=== PATIENT | female | born 1990 | race Caucasian/White ===

== ENCOUNTER 2016-05-24 12:54 | Observation (INO) ==
[2016-05-24 13:42] LABS: Bilirubin,Urine Negative (Negative); Blood,Urine Negative (Negative); Clarity,Urine Cloudy (Clear); Color,Urine Yellow (Yellow); Glucose,Urine (UA) Normal (Normal); Ketones,Urine Negative (Negative); Leukocyte Esterase,Urine Moderate (Negative); Nitrite,Urine Negative (Negative); Protein,Urine Negative (Neg-Trace); Urobilinogen,Urine Normal (Normal)
[2016-05-24 13:44] LABS: Bacteria,Urine Moderate per hpf (None-Few); Hyaline Casts,Urine None Seen per lpf (None-Few); RBC,Urine 0-3 per hpf (0-3)
[2016-05-24 13:51] LABS: Calcium Oxalate Crystals,Urine Present; Squamous Epithelial Cell,Urine Moderate per lpf (None-Few)
[2016-05-24 14:48] LABS: Candida DNA Not Detected (Not Detect); Gardnerella DNA Not Detected (Not Detect); Trichomonas DNA Not Detected (Not Detect)
--- NOTE | 2016-05-24 15:14 | OB/GYN Progress Note ---
Date of Encounter: 05/24/16 Time of Encounter: 15:12 - Assessment and Plan (1) contractions Current Visit: Yes Status: Acute 25 y/o with a history of delivery presented at 29+ weeks with complaints of discharge and discomfort. No LOF, VB or ctxs, UA showed a contaminated sample, sent for cultures, vaginosis panel returned negative, patient discharged to follow up outpt. Objective - Vital Signs Vital Signs: Intake and Output 05/23/16 05/24/16 05/24/16 23:59 07:59 15:59 Other: Weight 96.7 kg Patient Weight 05/24/16 23:59 Weight 96.7 kg - Labs Labs: Abnormal lab results Urine Clarity Cloudy (Clear) A 05/24/16 13:15 Ur Leukocyte Esterase Moderate (Negative) H 05/24/16 13:15 Urine Microscopic WBC 5-15 per hpf (0-3) H 05/24/16 13:15 Ur Squamous Epith Cells Moderate per lpf (None-Few) H 05/24/16 13:15 Urine Bacteria Moderate per hpf (None-Few) H 05/24/16 13:15 Ur Culture Indicated? YES (NO) A 05/24/16 13:15
== END 2016-05-24 15:05 | disposition home or self-care (01) ==
LOC: 1NENULAB
PROVIDERS: ADMIT Student in an Organized Health Care Education/Training Program; ATTEND Student in an Organized Health Care Education/Training Program

== ENCOUNTER 2016-07-03 11:16 | Observation (INO) ==
[2016-07-03] MEDS ORDERED: Ringers Solution, Lactated 1,000 ML IVC ONE ×2 (11:54→14:16)
[2016-07-03] MEDS ORDERED: Ringers Solution, Lactated 1,000 ML ONE (12:14)
[2016-07-03 13:13] LABS: Bilirubin,Urine Negative (Negative); Blood,Urine Negative (Negative); Clarity,Urine Cloudy (Clear); Color,Urine Yellow (Yellow); Glucose,Urine (UA) Normal (Normal); Ketones,Urine 15 mg/dL (Negative); Leukocyte Esterase,Urine Small (Negative); Nitrite,Urine Negative (Negative); PH,Urine 7.5 pH Units (5.0-8.0); Protein,Urine Negative (Neg-Trace); Specific Gravity,Urine 1.016 (1.010-1.025); Urobilinogen,Urine Normal (Normal)
[2016-07-03 13:15] LABS: Bacteria,Urine None Seen per hpf (None-Few); Hyaline Casts,Urine None Seen per lpf (None-Few); RBC,Urine 0-3 per hpf (0-3); Squamous Epithelial Cell,Urine Many per lpf (None-Few)
[2016-07-03 13:27] LABS: Mucus,Urine Few (Few)
[2016-07-03 13:28] LABS: Amorphous Sediment,Urine Few (Few)
[2016-07-03] MEDS ORDERED: Ondansetron 4 MG/2 ML VIAL IVP STA (13:29)
[2016-07-03] MEDS ORDERED: Famotidine 20 MG/2 ML VIAL IVP ONE (14:17)
--- NOTE | 2016-07-03 15:04 | Discharge Summary ---
Date of Encounter: 07/03/16 Time of Encounter: 15:57 - Discharge Diagnosis (1) contractions Priority: Primary Status: Acute Comments: Mrs. Parish, a 25yo female, presents from home with chief complaint nausea and vomiting. She has a history of pre-term deliveries. Currently on weekly progesterone injections. Her home health nurse, when giving her the progesterone injection, recommended the patient present for evaluation. Nausea and vomiting onset last night. Multiple occurrences; non-bloody, non-bilious. No fever, chills, abdominal pain, urinary burning/frequency/hesitancy/urgency, no diarrhea or constipation. On presentation, patient had lower abdominal pressure with intermittent sharp pelvic pains with sitting and walking. Her pressure and pain eased during her stay. Her nausea improved with 2L LR and zofran 4mg IV. Initial vaginal exam by nurse noted 1cm/50%/-3 station (11:30am ) which was unchanged 3 hours later (13:30) and unchanged an additional 1.5 hrs later (15:50). Throughout this time, her contractions changed from initially mild, sporadic, disorganized to mild, somewhat consistent 3 minute intervals to mild, sporadic, disorganized. NST was reactive and in 130-140 range. Patient does not have a history of short labors. She [place] appx [address] [place] from the hospital and desires to go home. Patient follows with Dr. Hernandez. Next appointment this coming Wednesday. She is agreeable to discharge home with return precautions, follow-up recommendation, and zofran 4mg PRN nausea. - Discharge Medications Prescriptions: Ondansetron ODT [Zofran ODT] 4 mg SL Q6HR PRN #12 tab.rapdis PRN Reason: Nausea Home Medications: Caplet tab PO DAILY 05/24/16 [History] Progesterone 50 mg IM 05/24/16 [History] Ondansetron ODT [Zofran ODT] 4 mg SL Q6HR PRN #12 tab.rapdis 07/03/16 [Rx] Allergies/Adverse Reactions: Allergies Amoxicillin Adverse Reaction (Verified 05/24/16 13:03) Hives Penicillins Adverse Reaction (Verified 05/24/16 13:03) Hives Data Procedures and tests throughout hospitalization: Laboratory Tests 07/03/16 13:05 Urine Color Yellow Urine Clarity Cloudy A Urine pH 7.5 Ur Specific [place] 1.016 Urine Protein Negative Urine Glucose (UA) Normal Urine Ketones 15 H Urine Blood Negative Urine Nitrite Negative Urine Bilirubin Negative Urine Urobilinogen Normal Ur Leukocyte Esterase Small H Urine Microscopic RBC 0-3 Urine Microscopic WBC 3-5 H Ur Squamous Epith Cells Many H Amorphous Sediment Few Urine Bacteria None Seen Hyaline Casts None Seen Urine Mucus Few Urine Yeast Test Not Performed Ur Culture Indicated? YES A Labs on day of discharge: Labs from last 24 hours 07/03/16 13:05 Urine Color Yellow Urine Clarity Cloudy A Urine pH 7.5 Ur Specific [place] 1.016 Urine Protein Negative Urine Glucose (UA) Normal Urine Ketones 15 H Urine Blood Negative Urine Nitrite Negative Urine Bilirubin Negative Urine Urobilinogen Normal Ur Leukocyte Esterase Small H Urine Microscopic RBC 0-3 Urine Microscopic WBC 3-5 H Ur Squamous Epith Cells Many H Amorphous Sediment Few Urine Bacteria None Seen Hyaline Casts None Seen Urine Mucus Few Urine Yeast Test Not Performed Ur Culture Indicated? YES A Date of admission: 07/03/16 11:16 Primary care physician: Dr. Hernandez Consults: none Discharging clinician: Josue Issa Anticipated date of discharge: 07/03/16 - Patient Status Disposition: Home, Self-Care Condition: Good Functional capacity at discharge: independent ambulation Overall status at discharge: patient is back to baseline - Discharge Instructions Instructions: Labor (DC) Additional Instructions: LABOR AND DELIVERY DISCHARGE INSTRUCTIONS Signs and Symptoms to be Reported to your Doctor Immediately: * Sudden gush, continuous or intermittent lead of fluid from vagina (note the time of gush and color of fluid) * Onset of bright red vaginal bleeding with or without pain (if you had a vaginal exam during this visit you may notice some dark red spotting. This is normal.) * Lower abdominal cramping or backache that is premenstrual-like feeling. * More than 6 contractions in one hour. * Burning during urination, having to urinate more frequently or pain in your mid-back. * A change in the baby's activity. This could be an increase or decrease in activity. * Severe headache which does not go away with tylenol. * Sudden swelling in the face, hands, arms and/or legs. * Upper abdominal pain - sometimes associated with heartburn or nausea and is not relieved by Maalox, Mylanta or Tums. * Dizziness or blurred vision or visual disturbances (seeing stars/lights). * Kick Counts One hour after a meal, lay down on one side in a quiet place. Count the number of diana the baby moves during an hour. If less than 6 movements, notify your physician. Diet: *Force fluids - 8-10 tall glasses of fluid per day. May include popsicles and jello. *Limit caffeine - this includes chocolate, coffee, tea, any soft drink containing such as all eda, Will Yellow and Mountain Dew - Diet and Activity Activity: resume usual activities as tolerated Diet: advance to your usual diet Hospital Course ESTIMATOR PRINTING Time Attestation: Total time spent providing and/or coordinating discharge services: Exam - Constitutional General appearance IM: A&O X 3 - Respiratory Respiratory exam: Present: CTAB - Cardiovascular Cardiovascular exam IM: Present: RRR, +S1, +S2 - GI/Abdominal GI/Abdominal exam IM: normal bowel sounds, soft - Extremities Exam Extremities exam IM: Present: normal capillary refill - Neurological Exam Neurological exam: oriented X3 - VTE Reasons for not Prescribing Prophylaxis: Treatment not Indicated - Low risk for VTE
== END 2016-07-03 15:50 | disposition home or self-care (01) ==
LOC: 1NENULAB

== ENCOUNTER → 2016-07-10 17:35 | Observation (INO) ==
--- NOTE | 2016-07-10 16:56 | OB/GYN History & Physical ---
Date of Encounter: 07/10/16 Time of Encounter: 17:15 Assessment and Plan (1) 36 weeks gestation of Current visit: Yes Status: Acute FHR/tocometer/nitrizine test; possible speculum exam for ferning (2) History of pre-eclampsia Current visit: Yes Status: Acute BP normal. No c/o headache or vision changes today. (3) Vaginal discharge during in third trimester Current visit: Yes Status: Acute Nitrazine and fern negative. Vaginosis panel sent. Pt desires discharge to home. Precautions given. (4) Decreased movement Current visit: Yes Status: Acute NST reactive. Kick counts discussed. History of Present Illness Chief complaint: possible SROM; pelvic pressure HPI: Ms. Parish is a 25 year old female 36 3/7 weeks, one previous labor and a HX of pre-eclampsia in the past states that yesterday she had a headache and a gush of fluid around 1700 yesterday that may have been blood tinged and small amount of mucus discharge since then. Patient states she is experiencing increased vaginal and low back pressure. She follows with Dr. Hernandez. vaginal discharge ; 1 , 1 term CECELIA: 08/05/16 Fluid description: clear-blood tinged (-) GBS Male: Ra Breast feeding ABC peds circumcision: yes Past Med Surg Social Fam HX - Past Medical History Medical history: no medical history Psychiatric history: depression - Past Surgical History Surgical History: other - Social History Smoking Status: Never smoker Smokeless Tobacco Status: No Alcohol use: none Drug use: none - Family History Sister Adopted: No Living Status: Still Living Hx Family Cardiac Disorders: No Hx Family Respiratory Disorders: No Hx Family Cancer: No Hx Family GI Disorders: No Hx Family Endocrine Disorder: No Hx Family Neuromuscular Disorders: No Hx Family Neurologic Disorders: No Hx Family HEENT Disorders: No Hx Family Autoimmune Disorders: No Obstetrical History - Pregnancies : 3 Para: 3 Term: 1 : 1 Livin Medications and Allergies Caplet tab PO DAILY 05/24/16 [History] Progesterone 50 mg IM 05/24/16 [History] Ondansetron ODT [Zofran ODT] 4 mg SL Q6HR PRN #12 tab.rapdis 07/03/16 [Rx] Allergies Amoxicillin Adverse Reaction (Verified 05/24/16 13:03) Hives Penicillins Adverse Reaction (Verified 05/24/16 13:03) Hives Review of System OB All systems PM: reviewed and no additional remarkable complaints except as stated - Gastrointestinal Gastrointestinal: as per HPI, abdominal pain - Genitourinary Genitourinary: as per HPI, pelvic pain, vaginal discharge Exam - Constitutional Constitutional: well developed, well nourished, no acute distress, average body habitus - HEENT HEENT: Normocephaly, Mucus Membranes Moist - Neck Neck exam: full ROM, normal inspection - Lungs Respiratory exam: CTAB - Cardiovascular Cardiovascular exam: RRR - Breasts Breast: bilateral: normal - Abdomen Abdomen: Present: bowel sounds normal - Extremities Extremities exam: full ROM, normal capillary refill, normal inspection - Vulva Vulva: bilateral: normal - Vagina Vagina: Present: normal moisture - Cervix Dilation: 2 Effacement: 50 Station: -2 - Uterus Uterus exam: Present: normal size, normal contour - Anus/Rectum Anus/Rectum: Present: normal perianal skin - Comments Comments: SSE with thick discharge. Negative pool, negative fern, negative nitrazine. Vaginosis panel collected. Results All other labs normal.
[2016-07-10 18:17] LABS: Candida DNA Not Detected (Not Detect); Gardnerella DNA Not Detected (Not Detect); Trichomonas DNA Not Detected (Not Detect)
== END | disposition home or self-care (01) ==
LOC: 1NENULAB
PROVIDERS: ADMIT Obstetrics & Gynecology; ATTEND Obstetrics & Gynecology

== ENCOUNTER 2016-07-15 04:38 | Inpatient (IN) ==
--- NOTE | 2016-07-15 04:30 | OB/GYN History & Physical ---
Date of Encounter: 07/15/16 Time of Encounter: 04:28 Assessment and Plan (1) 37 weeks gestation of Current visit: Yes Status: Acute Patient is a at 37 weeks who was awakened this morning around 1 AM due to large amount of fluid that was blood-tinged as well as onset of contractions that has now become at consistent intervals of 3-5 minutes apart. Positive nitrazine test. On physical exam, cervical dilation 4 cm, 60% effaced , station -3. Patient states associated pelvic pressure and lower abdominal pain with contractions at 7 out of 10. Similar to previous labor. heart rate/tocometer/nitrazine test (+) Labor plan: Induction: Patient approves augmentation of labor to include oxytocin if needed. Pain control: Epidural and Nubain. Nausea: Zofran Will continue to monitor patient and fetus. Will assess cervix at 2 hour intervals for changes and labor progression. Expectant management for labor. (2) NST (non-stress test) reactive Current visit: Yes Status: Acute FHT: 140s; moderate variability; 15 x 15 accels: No decelerations History of Present Illness Chief complaint: Labor HPI: Ms. Parish is a 25 year old female G 3 P P1102 at 37 weeks 0 /7 days with complications during include labor for which she recently finished her last dose of progesterone 4 days ago with a past medical history of obesity, depression, anxiety, endometriosis who presents today for labor evaluation. Patient describes that around 1:00 this morning she awoke with a gush of fluid that was blood tinged that soaked her in bed. Patient was unsure whether this was her water breaking or urine leakage so she waited and evaluated her contractions. Contractions began at time of water breakage described as intermittent occurring approximately 6-8 minutes apart and has since become more consistent intervals now 3-5 minutes apart so she decided to come and be evaluated for active labor. Associated symptoms include low pelvic pain, anterior cramping with contractions rated as 7 out of 10 pain, nausea. Similar to previous labor symptoms. Patient admits: Last sexual intercourse was last night, nausea, blood tinged fluid from her vagina Patient denies: vaginal discharge, dysuria, pyuria, hematuria, flank pain, fever , chills, abdominal trauma or falls movements: Normal movements Labor Plan: Induction: Patient improves augmentation of labor to include oxytocin if needed. Pain control: Epidural and Nubain. FHT: 140s; moderate variability; 15 x 15 accels: No decelerations TOCO: Contractions every 3-5 minutes Cervix: dilation 4 cm, 60 % effaced, station -3, consistency soft, position mid position. care: Regular intervals OB Doctor: Radha Hernandez OB history: Total pregnancies 3. Total living children 2. PANEL BEATER history: Sexually active currently Last Pap smear Abnormal Pap smear: patient denies history of Sexually transmitted infections none per patient Last menstrual period 09/26/2015 Age of menarche onset: 11 Labs: Blood Type: O+ GBS: Negative on 07/08/16 Rubella IgG antibody: Immune HbSAG: Negative T.pallidum antibody: Negative Varicella IgG antibody: Immune HIV 1 and 2 antibody and P 24 antigen: Negative Other: Cystic fibrosis 165: Negative Baby: Boy Name: Ra Mom plans to breast-feed Circumcision:[Yes] Rn Resource Nurse: Dr. Osman Past Med Surg Social Fam HX - Past Medical History Medical history: no medical history Psychiatric history: depression - Past Surgical History Surgical History: other - Social History Smoking Status: Never smoker Smokeless Tobacco Status: No Alcohol use: none Drug use: none - Family History Sister Adopted: No Age: 26 Living Status: Still Living Hx Family Cardiac Disorders: No Hx Family Respiratory Disorders: No Hx Family Cancer: No Hx Family GI Disorders: No Hx Family Genitourinary Disorders: No Hx Family Endocrine Disorder: No Hx Family Musculoskeletal Disorders: No Hx Family Neuromuscular Disorders: No Hx Family Neurologic Disorders: No Hx Family HEENT Disorders: No Hx Family Autoimmune Disorders: No Hx Family Reproductive Disorders: No Hx Family Psychosocial Disorders: No Hx Family Medical Disorders: Yes (factor 5) Obstetrical History - Pregnancies : 3 Para: 2 Term: 1 : 1 Ab's: 0 Livin - History/Complications History/Complications: # 1: 10/27/2009, vaginal delivery,36 weeks PPROM, , Weight:5lb 4oz, female "Alexandro" (Yelena). # 2: 08/20/13,Male,Slim,7lbs 4oz,Vaginal,38wks- Medications and Allergies Caplet tab PO DAILY 05/24/16 [History] Allergies Amoxicillin Adverse Reaction (Verified 05/24/16 13:03) Hives Penicillins Adverse Reaction (Verified 07/15/16 03:57) Hives thinks throat swelled as well Review of System OB - Constitutional Constitutional ROS IM: no chills, no fever(s), no frequent falls, no headache(s) - Nose, mouth, and throat Nose, mouth and throat: no dizziness, no headache(s), no nasal discharge, no sinus pain, no sinus pressure, no sore throat, no vertigo - Cardiovascular Cardiovascular: no chest pain, no dyspnea, no palpitations - Respiratory Respiratory: no cough, no dyspnea, no hemoptysis - Gastrointestinal Gastrointestinal: heartburn, nausea, vomiting - Genitourinary Genitourinary: pelvic pain, no urinary frequency, no urinary urgency, no vaginal discharge, no vaginal odor - Integumentary Integumentary: no rash, no sores, no unusual bruising, no wounds - Neurological Nerological: no headache(s), no lack of coordination, no loss of vision, no numbness, no syncope, no tingling - Endocrine Endocrine: no palpitations - Hematologic/Lymphatic Hematologic/Lymphatic: no easy bleeding, no easy bruising, no lymphadenopathy - Allergic/Immunologic Allergic/Immunologic: no tongue swelling, no throat swelling Exam - Vital Signs Vital signs: Initial Vital Signs Pulse Resp BP 97 16 129/74 07/15/16 04:01 07/15/16 04:01 07/15/16 04:01 - Constitutional Constitutional: no acute distress, obese - HEENT HEENT: EOMI, PERRL, Normocephaly, Mucus Membranes Moist - Neck Neck exam: full ROM, normal inspection, supple, trachea midline - Cardiovascular Cardiovascular exam: RRR, +S1, +S2 - Breasts Breast: bilateral: normal - Abdomen Abdomen: Present: bowel sounds normal, gravid - Extremities Extremities exam: full ROM, normal capillary refill, normal inspection, radial pulses palpable and symetrical Deep Tendon Reflex Grade: 2+ Normal - Vulva Vulva: bilateral: normal - Vagina Vagina: Present: normal moisture - Cervix Dilation: 4 Effacement: 60 Results Result Diagrams: 07/15/16 04:30 All other labs normal.
[~2016-07-15 04:38] MED LIST: Famotidine 20 MG/2 ML VIAL IVP PRN; Metoclopramide 10 MG/2 ML VIAL IVP PRN; Naloxone 0.4 MG/ML INJ IVP PRN
[2016-07-15] MEDS ORDERED: Oxytocin 20 units/ LR 1000 mL 20 UNIT/1,000 ML BAG IVC SCH ×2 (04:44→14:10)
[2016-07-15] MEDS ORDERED: Ringers Solution, Lactated 1,000 ML IVC SCH (04:45)
[2016-07-15 04:53] LABS: Basophils # 0.1 K/mcL (0.0-0.2); Basophils % 0.3 %; Eosinophils # 0.3 K/mcL (0.0-0.6); Eosinophils % 1.4 %; Hematocrit 37.2 % (35.3-44.9); Hemoglobin 12.7 g/dL (11.5-15.4); Immature Granulocytes % 0.5 % (0-4); Lymphocytes # 2.5 K/mcL (0.6-4.6); Lymphocytes % 14.1 %; Mean Corpuscular HGB Conc 34.1 g/dL (31.6-35.5); Mean Corpuscular Hemoglobin 31.2 pg (28.0-33.3); Mean Corpuscular Volume 91.4 fL (83.0-100.0); Mean Platelet Volume 10.6 fL (9.4-12.4); Monocytes # 1.1 K/mcL (0.0-1.3); Monocytes % 6.2 %; Neutrophils # 13.7 K/mcL (1.6-8.9); Platelet Count 173 K/mcL (140-400); Red Blood Count 4.07 M/mcL (3.82-4.97); Red Cell Distribution Width 13.3 % (11.5-14.5); Segmented Neutrophils % 77.5 %
[2016-07-15] MEDS ORDERED: Ondansetron 4 MG/2 ML VIAL IVP PRN (05:08)
--- NOTE | 2016-07-15 06:50 | OB Labor Progress Note ---
Date of Encounter: 07/15/16 Time of Encounter: 06:48 Labor Progress Note - Subjective Subjective: patient comfortable - Vital Signs Vital Signs: VSS - Cervix Cervix: 4cm - Plan Plan: FHT CAT 1 , start pitocin as contractions have ceased ok for epidural if desires
--- NOTE | 2016-07-15 07:17 | Anesthesia Evaluation PreOp ---
Date of Encounter: 07/15/16 Time of Encounter: 07:12 - Past History Planned Operation: vaginal del, ROM 37wk Cardiac History: Denies any Significant Hx Pulmonary History: Denies Any Significant HX CREDIT VERIFICATION CLERK History: Denies Any Significant HX Other Medical History: Denies Any Significant HX Anesthesia History: No Prior Anesthetic Complications, Past Anesthesia : Yes (37 wks, ROM) Alcohol Use: none Drug use: none Medications and Allergies Caplet tab PO DAILY 05/24/16 [History] Allergies Amoxicillin Adverse Reaction (Verified 05/24/16 13:03) Hives Penicillins Adverse Reaction (Verified 07/15/16 03:57) Hives thinks throat swelled as well Anesthesia Results - Labs 07/15/16 04:30 Anesthesia Exam - HEENT Pupil (Motor): Pupils equal Teeth: Normal Oral Opening: Greater than 3 - CREDIT VERIFICATION CLERK LOC: Oriented CREDIT VERIFICATION CLERK Motor: Normal RUE, Normal LUE, Normal RLE, Normal LLE, Normal Face CREDIT VERIFICATION CLERK Sensory: Normal: RUE, LUE, RLE, LLE, Face - Cardiac Rhythm: Regular Murmur: None - Pulmonary Breath Sounds: bilateral Clear Respiratory Effort: Symmetrical Anesthesia Assess/Plan ASA Score: 2 Modified [place] Scale for Level of Consciousness: Cooperative, oriented, and tranquil Anesthetic Plan: General, Regional Monitoring Plan: Standard Monitors
[2016-07-15] MEDS ORDERED: Epidural Premix (fent/bupiv) 110 ML EP ONE (07:21)
--- NOTE | 2016-07-15 08:46 | Anesthesia Procedures ---
Date of Encounter: 07/15/16 Time of Encounter: 08:12 Procedures: Anesthesia - Epidural/Spinal Patient ID/Chart reviewed: Yes Patient examined: Yes OB Eval: Gestational age: 37 OB Eval: : 3 OB Eval: Hx Para: 2 OB Eval: Dilated at (cm): 4 OB Eval: Contractions: Non-stressed pattern Consent Obtained: Yes Supplemental Oxygen: None/Room Air Site Prep: Aseptic Technique, Sterile prep and drape, 0.5% Chlorhexidine/Alcohol Patient position: upright Local Anesthetic: Lidocaine 1% Amount of Local Anesthetic used: 2 Touhy Needle Gauge: 18 Touhy Needle Depth (cm): 8 Catheter Depth at Skin (cm): 12 Test Dose (1.5% Lido + Epi): Volume given (mls): 3 Test Dose Result: Negative Loading Dose: Other: 12 from solution Loading Dose Administered: Thru Catheter Infusion Med: 0.125% Bupivacaine w/ 2 mcg/ml Fentanyl Infusion Rate (mls/hr): [address]: Tegaderm, Tape Interspace Used: L3-L4 Loss of Resistance (TA): Yes (slaine) Blood: No CSF: No Paresthesia: No Procedure: vss though out, FHR down ob providers at BS patient turned lateral and FIo2 scalp stimulation and scalp lead placed., during procedure once catheter being placed, patient states dont feel well, feel like going to pass out, 2ml of test and 5ml from solution though needle, negative results. taped quickly and going to supine and lateral with Fio2. providers in room BP upper 80 systolic when C/ O not feeling well, starting BP 100 systolic.
--- NOTE | 2016-07-15 09:03 | OB Labor Progress Note ---
Date of Encounter: 07/15/16 Time of Encounter: 08:34 Labor Progress Note - Subjective Subjective: called to see patient for bradycardia following her epidural - Cervix Cervix: 5/75/-3, vertex - Heart Tones Heart Tones: initially 90's, but matching maternal pulse. FSE placed without difficulty. FHT "s recovered with accels. - [place]: infrequent contractions - Interventions Interventions: FSE placed without difficulty. Scalp stim noted. - Plan Plan: Continue expectant management. Patient had spontaneously ruptured at 0800.
--- NOTE | 2016-07-15 10:47 | OB Labor Progress Note ---
Date of Encounter: 07/15/16 Time of Encounter: 10:45 Labor Progress Note - Subjective Subjective: Patient resting comfortable with epidural in place. Patient denies any pain at this time. - Cervix Cervix: 9/100/+1 - Heart Tones Heart Tones: 135 bpm moderate variability +15x15 accels variables noted. - [place]: 2-2.5 - Interventions Interventions: SVE, repositioned. - Plan Plan: continue labor management, prepare for delivery.
--- NOTE | 2016-07-15 11:31 | OB/GYN Procedure Note ---
Delivery - Delivery Date: 07/15/16 Provider: Adilene Hernandez Intrapartum events: none Delivery induction: none Delivery monitor: external FHT, external uterine, internal FHT Anesthesia: epidural Estimated Blood Loss: 200 - (s) A Delivery Date: 07/15/16 Delivery Time: 11:17 Presentation: vertex Position: OA Route of delivery: Gender: Male Viability: Viable Pounds: 7 Ounces: 14 at 1 minute: 8 at 5 mins: 9 Shoulder Dystocia: not encountered Specimens collected: cord blood Placenta: spontaneous Cord: nuchal cord, 3 umbilical vessels, nuchal reduced - Repair Episiotomy: none Laceration Description: None - Complications Delivery complications: none Delivery comments: Called to room with patient complete and +2 station. Under maternal effort she delivered a viable male weighing 7 lbs. 14 oz. and Apgars 8 and 9 at one and 5 minutes respectively over an intact perineum. Following delivery of the head there is nuchal cord noted and reduced. The shoulders delivered with maternal effort. was placed on mom's abdomen. Cord was clamped and cut. Cord blood was collected. Placenta delivered spontaneously, complete, and intact with a three-vessel cord. Mother and are recovering in the LDR in stable condition. - Disposition Mom disposition: stable in LDR [place] disposition: stable in LDR
[2016-07-15] MEDS ORDERED: Oxytocin 20 units/ LR 1000 mL 20 UNIT/1,000 ML BAG IVC ONE ×2 (13:23→14:10)
[2016-07-15] MEDS ORDERED: Acetaminophen 325 MG TABLET PO PRN (14:10)
[2016-07-15] MEDS: Ibuprofen 600 MG TABLET PO PRN (16:25)
[2016-07-16] MEDS: Ibuprofen 600 MG TABLET PO PRN ×3 (00:11→14:42)
--- NOTE | 2016-07-16 08:15 | Discharge Summary ---
Date of Encounter: 07/15/16 Time of Encounter: 08:12 - Discharge Diagnosis (1) Breast feeding status of mother Priority: Secondary Status: Acute Comments: support prn (2) Vaginal delivery Priority: Primary Status: Acute Comments: Continue routine care discharge home today follow up in 4-[address] Hernandez - Discharge Medications Prescriptions: Ibuprofen [Motrin] 600 mg PO Q6HR PRN #60 tablet PRN Reason: Cramping Breast Pump [BREAST PUMP] 1 each .ROUTE AD #1 each Home Medications: Caplet tab PO DAILY 05/24/16 [History] Breast Pump [BREAST PUMP] 1 each .ROUTE AD #1 each 07/16/16 [Rx] Ibuprofen [Motrin] 600 mg PO Q6HR PRN #60 tablet 07/16/16 [Rx] Vit/FA 1 each PO DAILY tablet 07/16/16 [Rx] Allergies/Adverse Reactions: Allergies Amoxicillin Adverse Reaction (Verified 05/24/16 13:03) Hives Penicillins Adverse Reaction (Verified 07/15/16 03:57) Hives thinks throat swelled as well Data Procedures and tests throughout hospitalization: Laboratory Tests 07/15/16 04:30 WBC 17.6 H RBC 4.07 Hgb 12.7 Hct 37.2 MCV 91.4 MCH 31.2 MCHC 34.1 RDW 13.3 Plt Count 173 MPV 10.6 Immature Gran % 0.5 Seg Neutrophils % 77.5 Lymphocytes % 14.1 Monocytes % 6.2 Eosinophils % 1.4 Basophils % 0.3 Neutrophils # 13.7 H Lymphocytes # 2.5 Monocytes # 1.1 Eosinophils # 0.3 Basophils # 0.1 Date of admission: 07/15/16 04:38 Primary care physician: Bonnie Barajas CNP Consults: 07/15/16 14:10 Consult to Media Operator [CONS] Routine Comment: Vaginal delivery, consult needed Discharging clinician: Abby Aguilar Anticipated date of discharge: 07/16/16 - Patient Status Disposition: Home, Self-Care Condition: Good Functional capacity at discharge: independent ambulation - Discharge Instructions Follow Up With: Adilene Hernandez DO [Partnered Physician] - (August 14, 2016 @ 2:50 pm) Bonnie Barajas CNP [Primary Care Provider] - - Diet and Activity Activity: increase activity as tolerated Diet: regular diet Hospital Course Reason for admission: active labor Delivery: Episiotomy: none Laceration: none Other procedures: none complications: none Discharge diagnosis: IUP at term delivered [place] baby: male (breast feeding) Time Attestation: Total time spent providing and/or coordinating discharge services: Time Spent: Less than 30 minutes Exam - Constitutional Vitals: Temp Pulse Resp BP Pulse Ox 98.0 F 99 14 114/77 98 07/16/16 03:35 07/16/16 03:35 07/16/16 03:35 07/16/16 03:35 07/16/16 03:35 General appearance IM: A&O X 3, pleasant, answers questions appropriately - Respiratory Respiratory exam: Present: CTAB - Cardiovascular Cardiovascular exam IM: Present: RRR, +S1, +S2 - GI/Abdominal GI/Abdominal exam IM: normal bowel sounds - Uterine Tone: Firm Uterus Position: 1 Finger Below Umbilicus, Midline - Extremities Exam Extremities exam IM: Present: full ROM, normal capillary refill, normal inspection - Neurological Exam Neurological exam: alert, oriented X3, reflexes normal
[2016-07-16] MEDS ORDERED: Prenatal Vit/FA 1 EACH TABLET PO SCH (09:00)
[2016-07-16 09:02] VITALS: BP 116/78
== END 2016-07-16 15:30 | disposition home or self-care (01) | DRG 560 ==
LOC: 1NENULAB → 1NENUOBS 14:03
PROVIDERS: ADMIT Student in an Organized Health Care Education/Training Program; ATTEND Student in an Organized Health Care Education/Training Program

== ENCOUNTER → 2019-11-10 22:00 | Observation (INO) ==
[2019-11-10 20:34] LABS: Bacteria,Urine Few per hpf (None-Few); Bilirubin,Urine Negative (Negative); Blood,Urine Negative (Negative); Clarity,Urine Turbid (Clear); Color,Urine Light-Yellow (Yellow); Glucose,Urine (UA) Normal (Normal); Ketones,Urine Negative (Negative); Leukocyte Esterase,Urine Large (Negative); Mucus,Urine Few per lpf (None-Few); Nitrite,Urine Negative (Negative); PH,Urine 6.5 pH Units (5.0-8.0); Protein,Urine Negative (Neg-Trace); Specific Gravity,Urine 1.013 (1.010-1.025); Squamous Epithelial Cell,Urine Moderate per hpf (None-Few); Urobilinogen,Urine Normal (Normal)
== END | disposition home or self-care (01) ==
LOC: 1NENULAB
PROVIDERS: ADMIT Obstetrics & Gynecology; ATTEND Obstetrics & Gynecology

== ENCOUNTER → 2019-12-26 19:50 | Observation (INO) | END | disposition home or self-care (01) | LOC: 1NENULAB | PROVIDERS: ADMIT Obstetrics & Gynecology; ATTEND Obstetrics & Gynecology ==

== ENCOUNTER → 2020-01-06 02:45 | Observation (INO) ==
[~2020-01-06 02:45] MED LIST changes: +Acetaminophen 325 MG TABLET PO ONE; -Famotidine 20 MG/2 ML VIAL IVP PRN; -Metoclopramide 10 MG/2 ML VIAL IVP PRN; -Naloxone 0.4 MG/ML INJ IVP PRN; +Ondansetron ODT 4 MG TAB.RAPDIS SL ONE
[2020-01-06 02:49] LABS: Amorphous Sediment,Urine Few per hpf (None-Few); Bacteria,Urine Few per hpf (None-Few); Bilirubin,Urine Negative (Negative); Blood,Urine Negative (Negative); Budding Yeast,Urine Few per hpf (None Seen); Clarity,Urine Turbid (Clear); Color,Urine Light-Yellow (Yellow); Glucose,Urine (UA) Normal (Normal); Ketones,Urine Negative (Negative); Leukocyte Esterase,Urine Small (Negative); Mucus,Urine Few per lpf (None-Few); Nitrite,Urine Negative (Negative); Protein,Urine Negative (Neg-Trace); RBC,Urine 0-3 per hpf (0-3); Specific Gravity,Urine 1.015 (1.010-1.025); Squamous Epithelial Cell,Urine Few per hpf (None-Few); Urobilinogen,Urine Normal (Normal); WBC,Urine 0-3 per hpf (0-3)
== END | disposition home or self-care (01) ==
LOC: 1NENULAB
PROVIDERS: ADMIT Obstetrics & Gynecology; ATTEND Obstetrics & Gynecology

== ENCOUNTER 2020-01-26 04:11 | Inpatient (IN) ==
[2020-01-26] MEDS ORDERED: Naloxone 0.4 MG/ML INJ IVP PRN (04:13)
[2020-01-26] MEDS ORDERED: *HR* FentaNYL (PF) 100 MCG/2 ML VIAL IVP PRN (04:13)
[2020-01-26] MEDS ORDERED: Lidocaine 1% 20 ML MDV INFILT PRN (04:13)
[2020-01-26] MEDS ORDERED: Famotidine 20 MG/2 ML VIAL IVP PRN (04:13)
[2020-01-26] MEDS ORDERED: Metoclopramide 10 MG/2 ML VIAL IVP PRN (04:13)
[2020-01-26] MEDS ORDERED: Ondansetron 4 MG/2 ML VIAL IVP PRN (04:13)
[2020-01-26] MEDS ORDERED: Famotidine 20 MG/2 ML VIAL IVP ONE (04:34)
[2020-01-26] MEDS: Ringers Solution, Lactated 1,000 ML IVC SCH ×2 (04:43→09:35)
[2020-01-26 05:06] LABS: Basophils # 0.1 K/mcL (0.0-0.2); Basophils % 0.4 %; Eosinophils # 0.3 K/mcL (0.0-0.6); Eosinophils % 3.1 %; Hematocrit 39.1 % (35.3-44.9); Immature Granulocytes % 0.5 % (0-4); Lymphocytes # 2.7 K/mcL (0.6-4.6); Lymphocytes % 24.1 %; Mean Corpuscular HGB Conc 33.2 g/dL (31.6-35.5); Mean Corpuscular Hemoglobin 31.3 pg (28.0-33.3); Mean Platelet Volume 11.2 fL (9.4-12.4); Monocytes # 0.7 K/mcL (0.0-1.3); Monocytes % 5.8 %; Neutrophils # 7.3 K/mcL (1.6-8.9); Platelet Count 198 K/mcL (140-400); Red Blood Count 4.16 M/mcL (3.82-4.97); Red Cell Distribution Width 13.3 % (11.5-14.5); Segmented Neutrophils % 66.1 %; White Blood Count 11.1 K/mcL (4.3-11.1)
[2020-01-26 05:24] LABS: Amphetamine Screen,Urine Negative ng/mL (Cutoff=1000); Barbiturate Screen,Urine Negative ng/mL (Cutoff=200); Benzodiazepines Screen,Urine Negative ng/mL (Cutoff=200); Cannabinoid Screen,Urine Negative ng/mL (Cutoff = 50); Cocaine Screen,Urine Negative ng/mL (Cutoff= 300); Opiate Screen,Urine Negative ng/mL (Cutoff=300); Phencyclidine Screen,Urine Negative ng/mL (Cutoff=25)
[2020-01-26] MEDS ORDERED: EPHEDrine 50 MG/ML VIAL IVP PRN (08:49)
[2020-01-26] MEDS ORDERED: *HR* FentaNYL (PF) 100 MCG/2 ML VIAL ONE (08:52)
[2020-01-26] MEDS ORDERED: Bupivacaine-MPF 0.25% 10 ML VIAL ONE (08:52)
[2020-01-26] MEDS ORDERED: Epidural Premix (fent/bupiv) 110 ML EP SCH (09:00)
[2020-01-26] MEDS ORDERED: Oxytocin 20 units/ LR 1000 mL 20 UNIT/1,000 ML BAG IVC ONE (09:50)
[2020-01-26] MEDS ORDERED: Rho Immune Globulin 1,500 UNIT SYRINGE IM PRN (10:16)
[2020-01-26] MEDS ORDERED: Measles/Mumps/Rubella Vacc 0.5 ML VIAL SQ PRN (10:16)
[2020-01-26] MEDS ORDERED: Acetaminophen 325 MG TABLET PO PRN (10:16)
[2020-01-26] MEDS ORDERED: Oxytocin 20 units/ LR 1000 mL 20 UNIT/1,000 ML BAG IVC SCH (10:30)
[2020-01-26] MEDS: Ibuprofen 600 MG TABLET PO PRN ×3 (13:00→23:31)
[2020-01-27 07:26] LABS: Hematocrit 36.7 % (35.3-44.9); Immature Granulocytes % 0.6 % (0-4); Lymphocytes % 23.4 %; Mean Corpuscular HGB Conc 32.7 g/dL (31.6-35.5); Mean Corpuscular Hemoglobin 31.1 pg (28.0-33.3); Mean Corpuscular Volume 95.1 fL (83.0-100.0); Mean Platelet Volume 10.5 fL (9.4-12.4); Platelet Count 168 K/mcL (140-400); Red Blood Count 3.86 M/mcL (3.82-4.97); Red Cell Distribution Width 13.5 % (11.5-14.5); Segmented Neutrophils % 66.5 %; White Blood Count 11.8 K/mcL (4.3-11.1)
[2020-01-27 07:27] LABS: Basophils % 0.3 %; Eosinophils # 0.3 K/mcL (0.0-0.6); Eosinophils % 2.8 %; Lymphocytes # 2.8 K/mcL (0.6-4.6); Monocytes # 0.8 K/mcL (0.0-1.3); Monocytes % 6.4 %; Neutrophils # 7.9 K/mcL (1.6-8.9)
[2020-01-27 07:50] VITALS: BP 122/72
[2020-01-27] MEDS: Ibuprofen 600 MG TABLET PO PRN (08:22)
[2020-01-27] MEDS ORDERED: Prenatal Vit/FA 1 EACH TABLET PO SCH (09:00)
== END 2020-01-27 13:45 | disposition home or self-care (01) | DRG 560 ==
LOC: 1NENULAB → OBSVTOIN 04:11 → 1NENUOBS 12:14
PROVIDERS: ADMIT Student in an Organized Health Care Education/Training Program; ATTEND Student in an Organized Health Care Education/Training Program